=== PATIENT | female | born 1985 | race Caucasian/White ===

== ENCOUNTER 2021-06-27 11:39 | Day surgery (SDC) | payer MEDICAID ==
[2021-06-20 14:30] LABS: BASOPHILS % (AUTO) 0.9 % (0-1); EOSINOPHILS # (AUTO) 0.1 X10'3 (0-0.9); EOSINOPHILS % (AUTO) 1.9 % (0-6); LYMPHOCYTES # (AUTO) 1.6 X10'3 (1.1-4.8); LYMPHOCYTES % (AUTO) 32.3 % (21-51); MEAN CORPUSCULAR HEMOGLOBIN 32.6 PG (27.0-31.0); MEAN CORPUSCULAR HGB CONC 34.2 g/dL (33.0-36.5); MEAN CORPUSCULAR VOLUME 95.3 FL (78-98); MEAN PLATELET VOLUME 9.2 FL (7.4-10.4); MONOCYTES # (AUTO) 0.6 X10'3 (0-0.9); MONOCYTES % (AUTO) 12.1 % (2-12); NEUTROPHILS # (AUTO) 2.6 X10'3 (1.8-7.7); NEUTROPHILS % (AUTO) 52.8 % (42-75); PRE OP HEMATOCRIT 40.8 % (35.0-45.0); PRE OP PLATELET COUNT 156 X10'3 (140-440); RED BLOOD COUNT 4.28 X10'6 (4.20-5.60); RED CELL DISTRIBUTION WIDTH 12.4 % (11.5-14.5)
[2021-06-20 14:32] LABS: HCG SERUM QL NEGATIVE
[2021-06-20 14:39] LABS: ALBUMIN 4.2 G/DL (3.4-5.0); ALBUMIN/GLOBULIN RATIO 1.6 (1.1-1.5); ALKALINE PHOSPHATASE 65 IU/L (46-116); BLOOD UREA NITROGEN 12 MG/DL (7-18); BUN/CREATININE RATIO 17.1 (6.6-38.0); CALCIUM 8.6 MG/DL (8.5-10.1); CHLORIDE 108 MMOL/L (99-107); PRE OP ALT 18 U/L (30-65); PRE OP ANION GAP 10 (8-16); PRE OP AST 22 U/L (10-37); PRE OP BILIRUB, TOTAL 1.7 MG/DL (0.0-1.0); PRE OP GLUCOSE 88 MG/DL (70-104); PRE OP POTASSIUM 4.1 MMOL/L (3.4-5.1); PRE OP SODIUM 143 MMOL/L (135-145); TOTAL CARBON DIOXIDE 25.4 MMOL/L (24-32); TOTAL PROTEIN 6.8 G/DL (6.4-8.2); eGFR > 90 ML/MIN
[2021-06-20 15:22] LABS: PLATELET ESTIMATE NORMAL
[2021-06-20 15:23] LABS: LARGE PLATELETS FEW
[~2021-06-27] VITALS: Ht 177.8 cm; Wt 61.2 kg
[2021-06-27] VITALS (9 sets, daily range): BP systolic 101–110; BP diastolic 66–76
[~2021-06-27 11:39] MED LIST: NO HOME MEDS; ceFAZolin 1,000 MG in NS 50ML IVPB IV ONE; famotidine 20mg tablet PO ONE; ringers solution, lacted 1,000 ML IV SCH
[2021-06-27] MEDS ORDERED: ceFAZolin 2gm in dextrose, iso 50 ML IV ONE (12:02)
[2021-06-27] MEDS ORDERED: ondansetron/PF 4mg/2ml inj IV PRN (14:00)
[2021-06-27] MEDS ORDERED: morphine 2 MG/ML inj. syringe IV PRN (14:00)
[2021-06-27] MEDS ORDERED: hydrALAZINE 20mg/ml inj. IV PRN (14:00)
[2021-06-27] MEDS ORDERED: fentaNYL/PF 50MCG/1 ML 2ML syringe IV PRN ×2 (14:00)
[2021-06-27] MEDS ORDERED: labetalol 20mg/4ml (5mg/ml) syringe IV PRN (14:00)
[2021-06-27] MEDS ORDERED: morphine 4 MG/ML inj SYRINge IV PRN (14:00)
[2021-06-27] MEDS ORDERED: ringers solution, lacted 1,000 ML IV SCH (14:00)
[2021-06-27] MEDS ORDERED: BUPIVAcaine 0.5% inj/PF 30 ML ONE (14:35)
[2021-06-27] MEDS ORDERED: triamcinolone acetonide 40mg/ml inj ONE (14:35)
[2021-06-27] MEDS ORDERED: BUPIVAcaine 0.5% inj/PF 30 ml vial IJ ONE (14:45)
[2021-06-27] MEDS ORDERED: midazolam 1 mg/ML 2ml injection ONE (14:57)
[2021-06-27] MEDS ORDERED: fentaNYL/PF 50MCG/1 ML 2ML syringe ONE (14:58)
[2021-06-27] MEDS ORDERED: LIDOcaine 2% (20mg/ml) 5ml vial ONE (15:03)
[2021-06-27] MEDS ORDERED: propofol inj 20 ML IV ONE (15:03)
[2021-06-27] MEDS ORDERED: dexamethasone sod phosphate 4mg/ml inj. ONE (15:04)
[2021-06-27] MEDS ORDERED: ondansetron/PF 4mg/2ml inj ONE (15:05)
--- NOTE | 2021-06-27 15:51 | NUR ---
Received from OR via , accompanied by Anesthesiologist DR ALVARADO and report given by Anesthesiolgist. AWAKENS TO VOICE. VITALS STABLE. DRESSING DI. JOSE PAIN.
[2021-06-27] MEDS ORDERED: VANCOMYCIN INJ 1000 MG in NORMAL SALINE 200ml IV.SOLN IV ONE (17:15)
--- NOTE | 2021-06-27 17:21 | NUR ---
AWAKE AND ORIENTED. VITALS STABLE. DRESSING DI. JOSE PAIN. HOME WITH HER SPOUSE AT THIS TIME.
== END 2021-06-27 17:21 | disposition home or self-care (01) ==
LOC: PAS 11:39
PROVIDERS: ATTEND Orthopaedic Surgery
DX: S83.242A Other tear of medial meniscus, current injury, left knee, initial encounter (principal); S83.282A Other tear of lateral meniscus, current injury, left knee, initial encounter; M94.262 Chondromalacia, left knee; M17.0 Bilateral primary osteoarthritis of knee; M85.80 Other specified disorders of bone density and structure, unspecified site; G43.909 Migraine, unspecified, not intractable, without status migrainosus; Z20.822 Contact with and (suspected) exposure to COVID-19; Z79.899 Other long term (current) drug therapy; X58.XXXA Exposure to other specified factors, initial encounter; Y93.89 Activity, other specified; Y92.89 Other specified places as the place of occurrence of the external cause; Y99.8 Other external cause status
CPT/HCPCS: 29873; 29879; 29880; 36415; 80053; 82948; 84703; 85025; J1100; J2250; J2405; J2704; J3010; J3301; J3370; J3490; J7120; S0020; U0003; U0005; Z7506; Z7508; Z7512; 85008; A4215; A4618; A6250; A6449; A7000; J0690

== ENCOUNTER 2023-04-14 12:34 | Emergency (ER) | payer BC, MEDICAID ==
[~2023-04-14] VITALS: Ht 180.3 cm; Wt 61.3 kg
[~2023-04-14 12:34] MED LIST changes: -ceFAZolin 1,000 MG in NS 50ML IVPB IV ONE; -famotidine 20mg tablet PO ONE; -ringers solution, lacted 1,000 ML IV SCH
[2023-04-14 14:02] VITALS: BP 97/75; PULSE 72; RESP 16; O2SAT 100
[2023-04-14] MEDS ORDERED: BENZ-38 PO (14:35)
[2023-04-14 14:38] VITALS: TEMP 97.8
== END 2023-04-14 14:55 | disposition home or self-care (01) ==
LOC: ER 12:35
DX: U07.1 COVID-19 (principal); Z79.899 Other long term (current) drug therapy
CPT/HCPCS: 99283